=== PATIENT | female | born 1965 | race Caucasian/White ===

== ENCOUNTER 2017-02-17 16:27 | Emergency (ER) | payer SELFPAY ==
[~2017-02-17] VITALS: Ht 162.6 cm; Wt 65.0 kg
[2017-02-17 16:30] VITALS: BP 168/86; PULSE 74; RESP 14; TEMP 97.6; O2SAT 97
[2017-02-17] MEDS ORDERED: SODIUM CHLOR 0.9% 1000 ML INJ 1,000 ML IV SCH (17:23)
[2017-02-17] MEDS ORDERED: SODIUM CHLORIDE 0.9% FLUSH 10 ML FLUSH IV FLUSH PRN (17:30)
[2017-02-17 17:37] VITALS: BP 145/79; PULSE 74; RESP 14; O2SAT 99
--- NOTE | 2017-02-17 17:52 | RADRPT ---
EXAM DATE/TIME: 02/17/2017 17:31 [place] COMPARISON: No previous studies available for comparison. INDICATIONS : Chest pain, altered mental status today MEDICAL HISTORY : Fibromyalgia SURGICAL HISTORY : None. ENCOUNTER: Initial ACUITY: 1 day PAIN SCORE: 5/10 LOCATION: Bilateral chest FINDINGS: A single view of the chest demonstrates the lungs to be symmetrically aerated without evidence of mas s, infiltrate or effusion. The cardiomediastinal contours are unremarkable. Osseous structures are intact. CONCLUSION: No acute disease. Stanislaw Manzo MD FACR on February 17, 2017 at 17:49 Board Certified Radiologist. This report was verified electronically.
[2017-02-17 18:14] LABS: BASOPHIL % 0.1 % (0.0-2.0); EOSINOPHIL % 0.1 % (0.0-4.0); HEMATOCRIT 42.6 % (35.0-46.0); HEMOGLOBIN 14.8 GM/DL (11.6-15.3); LYMPH % 7.8 % (9.0-44.0); LYMPHOCYTE # 0.8 TH/MM3 (1.0-4.8); MEAN CELL VOLUME 87.5 FL (80.0-100.0); MEAN CORPUSCULAR HEMOGLOBIN 30.4 PG (27.0-34.0); MEAN CORPUSCULAR HGB CONC 34.7 % (32.0-36.0); MEAN PLATELET VOLUME 8.2 FL (7.0-11.0); MONO % 4.5 % (0.0-8.0); MONOCYTE # 0.5 TH/MM3 (0-0.9); NEUT % 87.5 % (16.0-70.0); PLATELET COUNT 325 TH/MM3 (150-450); RED BLOOD COUNT 4.87 MIL/MM3 (4.00-5.30); RED CELL DISTRIBUTION WIDTH 13.2 % (11.6-17.2); WHITE BLOOD COUNT 10.3 TH/MM3 (4.0-11.0)
[2017-02-17 18:33] LABS: ALBUMIN 4.1 GM/DL (3.4-5.0); AST (GOT) 19 U/L (15-37); BICARBONATE 26.3 MEQ/L (21.0-32.0); BLOOD UREA NITROGEN 10 MG/DL (7-18); CALCIUM 8.9 MG/DL (8.5-10.1); CHLORIDE 101 MEQ/L (98-107); CREATININE 0.76 MG/DL (0.50-1.00); GLOMERULAR FILTRATION RATE 81 ML/MIN (>89); GLUCOSE,RANDOM 103 MG/DL (74-106); SODIUM (NA) 137 MEQ/L (136-145)
[2017-02-17 18:44] LABS: ALKALINE PHOSPHATASE 68 U/L (45-117); ALT (GPT) 23 U/L (10-53); TOTAL BILIRUBIN ADULT 0.5 MG/DL (0.2-1.0); TOTAL PROTEIN 8.1 GM/DL (6.4-8.2); TROPONIN I LESS THAN 0.02 NG/ML (0.02-0.05)
[2017-02-17 18:45] LABS: ACETAMINOPHEN LESS THAN 2.0 MCG/ML (10.0-30.0)
[2017-02-17 19:13] VITALS: BP 152/79; PULSE 75; RESP 16; O2SAT 99
[2017-02-17] MEDS ORDERED: DIAZ5 PO (19:48)
--- NOTE | 2017-02-17 19:51 | PD ---
HPI Chief Complaint: Dizziness Time Seen by Provider: 17:23 Travel History International Travel<30 days: No Contact w/Intl Traveler<30days: No Traveled to known affect area: No History of Present Illness HPI 51 yo F has several complaints including high back pain, headache, anxiety, insomnia, chest pain and fatigue. pt reports no routine follow up with md 2/2 cost and personal preferences. no loc or syncope. no drugs alcohol. principal complaint of patient is insomnia after some prolonged discussion. pt reports a fair amount of personal stress lately. no fam hx cad, htn, dm2 or hld. no smoking. no dyspnea. no exertional cp. no cough or fever. PFSH Past Medical History Cancer: Yes (colon ca ) Fibromyalgia: Yes ?: Not LMP: january 2017 Past Surgical History Tonsillectomy: Yes Social History Alcohol Use: No Tobacco Use: No Substance Use: No Allergies-Medications (Allergen,Severity, Reaction): Coded Allergies: codeine (Verified Allergy, Unknown, 02/17/17) Reported Meds & Prescriptions Reported Meds & Active Scripts Active Valium (Diazepam) 5 Mg Tab 5 Mg PO TID PRN Review of Systems Except as stated in HPI: all other systems reviewed are Neg General / Constitutional: No: Fever Physical Exam Narrative GENERAL: 51 yo F, WNWD, mild anxious SKIN: Warm and dry. HEAD: Atraumatic. Normocephalic. EYES: Pupils equal and round. No scleral icterus. No injection or drainage. ENT: No nasal bleeding or discharge. Mucous membranes pink and moist. NECK: Trachea midline. No JVD. CARDIOVASCULAR: Regular rate and rhythm. RESPIRATORY: No accessory muscle use. Clear to auscultation. Breath sounds equal bilaterally. GASTROINTESTINAL: Abdomen soft, non-tender, nondistended. Hepatic and splenic margins not palpable. MUSCULOSKELETAL: Extremities without clubbing, cyanosis, or edema. No obvious deformities. NEUROLOGICAL: Awake and alert. No obvious cranial nerve deficits. Motor grossly within normal limits. Five out of 5 muscle strength in the arms and legs. Normal speech. PSYCHIATRIC: minimal anxiety. no si/hi. pt reports insomnia. Data Data Last Documented VS Vital Signs Date Time Temp Pulse Resp B/P (MAP) Pulse Ox O2 Delivery O2 Flow Rate FiO2 02/17/17 20:38 02/17/17 19:13 75 16 99 Room Air 02/17/17 16:30 97.6 Vital Signs Date Time Temp Pulse Resp B/P (MAP) Pulse Ox O2 Delivery O2 Flow Rate FiO2 02/17/17 20:38 02/17/17 19:13 75 16 152/79 (103) 99 Room Air 02/17/17 17:37 74 14 145/79 (101) 99 Room Air 02/17/17 16:30 97.6 74 14 168/86 (113) 97 Orders Orders Complete Blood Count With Diff (02/17/17 17:23) Comprehensive Metabolic Panel (02/17/17 17:23) Creatine Kinase (Cpk) (02/17/17 17:23) Troponin I (02/17/17 17:23) Thyroid Stimulating Hormone (02/17/17 17:23) Chest, Single Ap (02/17/17 17:23) Ecg Monitoring (02/17/17 17:23) Iv Access Insert/Monitor (02/17/17 17:23) Oximetry (02/17/17 17:23) Sodium Chloride 0.9% Flush (Ns Flush) (02/17/17 17:30) Sodium Chlor 0.9% 1000 Ml Inj (Ns 1000 M (02/17/17 17:23) Alcohol (Ethanol) (02/17/17 17:23) Tylenol (Acetaminophen) (02/17/17 17:23) Salicylates (Aspirin) (02/17/17 17:23) Electrocardiogram (02/17/17 ) Ed Discharge Order (02/17/17 19:47) Diazepam (Valium) (02/17/17 20:00) Labs Laboratory Tests Test 02/17/17 17:30 White Blood Count 10.3 TH/MM3 Red Blood Count 4.87 MIL/MM3 Hemoglobin 14.8 GM/DL Hematocrit 42.6 % Mean Corpuscular Volume 87.5 FL Mean Corpuscular Hemoglobin 30.4 PG Mean Corpuscular Hemoglobin Concent 34.7 % Red Cell Distribution Width 13.2 % Platelet Count 325 TH/MM3 Mean Platelet Volume 8.2 FL Neutrophils (%) (Auto) 87.5 % Lymphocytes (%) (Auto) 7.8 % Monocytes (%) (Auto) 4.5 % Eosinophils (%) (Auto) 0.1 % Basophils (%) (Auto) 0.1 % Neutrophils # (Auto) 9.0 TH/MM3 Lymphocytes # (Auto) 0.8 TH/MM3 Monocytes # (Auto) 0.5 TH/MM3 Eosinophils # (Auto) 0.0 TH/MM3 Basophils # (Auto) 0.0 TH/MM3 CBC Comment DIFF FINAL Differential Comment Blood Urea Nitrogen 10 MG/DL Creatinine 0.76 MG/DL Random Glucose 103 MG/DL Total Protein 8.1 GM/DL Albumin 4.1 GM/DL Calcium Level 8.9 MG/DL Alkaline Phosphatase 68 U/L Aspartate Amino Transf (AST/SGOT) 19 U/L Alanine Aminotransferase (ALT/SGPT) 23 U/L Total Bilirubin 0.5 MG/DL Sodium Level 137 MEQ/L Potassium Level 4.0 MEQ/L Chloride Level 101 MEQ/L Carbon Dioxide Level 26.3 MEQ/L Anion Gap 10 MEQ/L Estimat Glomerular Filtration Rate 81 ML/MIN Total Creatine Kinase 65 U/L Troponin I LESS THAN 0.02 NG/ML Thyroid Stimulating Hormone 3rd Gen 0.634 uIU/ML Salicylates Level LESS THAN 1.7 MG/DL Acetaminophen Level LESS THAN 2.0 MCG/ML Ethyl Alcohol Level LESS THAN 3 MG/DL MDM Medical Decision Making Medical Screen Exam Complete: Yes Emergency Medical Condition: Yes Medical Record Reviewed: Yes Differential Diagnosis ich, cad, metabolic disarray Narrative Course CBC & BMP Diagram 02/17/17 17:30 Total Protein 8.1, Albumin 4.1, Calcium Level 8.9, Alkaline Phosphatase 68, Aspartate Amino Transf (AST/SGOT) 19, Alanine Aminotransferase (ALT/SGPT) 23, Total Bilirubin 0.5 EKG no ischemic injury pattern, sinus, normal rate, left atrial enlargement pt ok for discharge home after speaking for about 10 minutes with patient at bedside the patient's main complaint among many is insomnia valium prescription benefits of alf medical follow up discussed and patient verbalized understanding Diagnosis Primary Impression: Cephalalgia Qualified Codes: R51 - Headache Referrals: [facility] call for appointment Med/Other Pt SpecificInfo: Prescription(s) given Scripts Diazepam (Valium) 5 Mg Tab 5 MG PO TID Y for SPASM, #15 TAB 0 Refills Prov: Blayne Ramirez MD 02/17/17 Disposition: 01 DISCHARGE HOME Condition: Stable Blayne Ramirez MD Feb 17, 2017 19:51
[2017-02-17] MEDS ORDERED: DIAZEPAM 5 MG TAB PO ONE (20:00)
--- NOTE | 2017-02-20 09:46 | EKG ---
Date Performed: 02/17/2017 Time Performed: 19:22:53 PTAGE: 51 years EKG: Sinus rhythm LEFT ATRIAL ENLARGEMENT LOW QRS VOLTAGE IN EXTREMITY LEADS ABNORMAL ECG NO PREVIOUS TRACING DOCTOR: Nathan Coronel Interpretating Date/Time 02/20/2017 09:46:08
== END 2017-02-17 20:38 | disposition home or self-care (01) ==
LOC: NEPE 16:27
DX: R51 Headache (principal); G47.00 Insomnia, unspecified; M79.7 Fibromyalgia; R94.31 Abnormal electrocardiogram [ECG] [EKG]
CPT/HCPCS: 71010; 80053; 80307; 82550; 84443; 84484; 85025; 93005; 96360; 99285; J7030